=== PATIENT | male | born 1980 | race Caucasian/White ===

== ENCOUNTER 2016-10-09 10:40 | Emergency (ER) | payer SELFPAY | END 2016-10-09 13:44 | disposition home or self-care (01) | LOC: D.ER 10:40 | DX: S01.131A Puncture wound without foreign body of right eyelid and periocular area, initial encounter (principal); W20.8XXA Other cause of strike by thrown, projected or falling object, initial encounter; Y93.89 Activity, other specified; Y92.89 Other specified places as the place of occurrence of the external cause; R59.0 Localized enlarged lymph nodes; F17.200 Nicotine dependence, unspecified, uncomplicated ==

== ENCOUNTER 2016-12-24 11:01 | Emergency (ER) | payer SELFPAY | END 2016-12-24 12:40 | disposition home or self-care (01) | LOC: D.ER 11:01 | DX: S60.410A Abrasion of right index finger, initial encounter (principal); X58.XXXA Exposure to other specified factors, initial encounter; Y93.89 Activity, other specified; Y92.89 Other specified places as the place of occurrence of the external cause; F17.200 Nicotine dependence, unspecified, uncomplicated ==

== ENCOUNTER 2017-02-12 12:19 | Emergency (ER) | payer SELFPAY | END 2017-02-12 15:09 | disposition home or self-care (01) | LOC: D.ER 12:19 | DX: S89.91XA Unspecified injury of right lower leg, initial encounter (principal); X58.XXXA Exposure to other specified factors, initial encounter; Y93.51 Activity, roller skating (inline) and skateboarding; Y92.019 Unspecified place in single-family (private) house as the place of occurrence of the external cause; S80.01XA Contusion of right knee, initial encounter; F17.200 Nicotine dependence, unspecified, uncomplicated ==

== ENCOUNTER 2017-05-07 08:28 | Emergency (ER) | payer SELFPAY | END 2017-05-07 09:31 | disposition home or self-care (01) | LOC: D.ER 08:28 | DX: J01.90 Acute sinusitis, unspecified (principal); F17.200 Nicotine dependence, unspecified, uncomplicated ==

== ENCOUNTER 2017-06-16 13:46 | Emergency (ER) | payer SELFPAY | END 2017-06-16 16:50 | disposition home or self-care (01) | LOC: D.ER 13:46 | DX: S02.5XXA Fracture of tooth (traumatic), initial encounter for closed fracture (principal); X58.XXXA Exposure to other specified factors, initial encounter; Y93.89 Activity, other specified; Y92.019 Unspecified place in single-family (private) house as the place of occurrence of the external cause; K08.89 Other specified disorders of teeth and supporting structures ==

== ENCOUNTER 2017-07-22 09:04 | Emergency (ER) | payer SELFPAY | END 2017-07-22 11:56 | disposition home or self-care (01) | LOC: D.ER 09:04 | DX: M54.5 Low back pain (principal); F17.200 Nicotine dependence, unspecified, uncomplicated ==

== ENCOUNTER 2017-08-06 14:12 | Emergency (ER) | payer SELFPAY | END 2017-08-06 15:12 | disposition home or self-care (01) | LOC: D.ER 14:12 | DX: M54.5 Low back pain (principal) ==

== ENCOUNTER 2017-12-24 11:10 | Emergency (ER) | payer SELFPAY ==
[~2017-12-24] VITALS: Ht 188 cm; Wt 81.8 kg
[2017-12-24 11:32] VITALS: BP 122/91; Ht 188 cm; Wt 81.8 kg
== END 2017-12-24 16:19 | disposition home or self-care (01) ==
LOC: D.ER 11:10
DX: S91.341A Puncture wound with foreign body, right foot, initial encounter (principal); W25.XXXA Contact with sharp glass, initial encounter; Y93.89 Activity, other specified; Y92.019 Unspecified place in single-family (private) house as the place of occurrence of the external cause; F17.200 Nicotine dependence, unspecified, uncomplicated

== ENCOUNTER 2018-03-03 06:59 | Emergency (ER) | payer SELFPAY ==
[~2018-03-03] VITALS: Ht 188 cm; Wt 81.8 kg
[2018-03-03 07:03] VITALS: Ht 188 cm; Wt 81.8 kg
[2018-03-03] MEDS ORDERED: MEDROL DOSE PACK4 MG PO (09:45)
[2018-03-03] MEDS ORDERED: ZPAK PO (09:45)
[2018-03-03 10:07] VITALS: BP 132/85
== END 2018-03-03 10:04 | disposition home or self-care (01) ==
LOC: D.ER 06:59
DX: J06.9 Acute upper respiratory infection, unspecified (principal); J20.9 Acute bronchitis, unspecified; R53.81 Other malaise; R53.83 Other fatigue; F17.200 Nicotine dependence, unspecified, uncomplicated; R09.89 Other specified symptoms and signs involving the circulatory and respiratory systems

== ENCOUNTER 2018-03-24 08:06 | Emergency (ER) | payer SELFPAY ==
[~2018-03-24] VITALS: Ht 188 cm; Wt 81.8 kg
[~2018-03-24 08:06] MED LIST: MEDROL DOSE PACK4 MG PO; ZPAK PO
[2018-03-24 08:09] VITALS: Ht 188 cm; Wt 81.8 kg
[2018-03-24 09:03] VITALS: BP 126/87
== END 2018-03-24 09:03 | disposition home or self-care (01) ==
LOC: D.ER 08:06
DX: M54.5 Low back pain (principal); F17.200 Nicotine dependence, unspecified, uncomplicated

== ENCOUNTER 2018-04-22 06:32 | Emergency (ER) | payer SELFPAY ==
[~2018-04-22] VITALS: Ht 188 cm; Wt 86.4 kg
[2018-04-22 06:38] VITALS: Ht 188 cm; Wt 86.4 kg
[2018-04-22 07:17] LABS: BASOPHILS 0.4 % (0-2); EOSINOPHILS 3.1 % (0-7); HEMATOCRIT 47.1 % (42.0-54.0); HEMOGLOBIN 16.3 g/dL (13.5-17.5); IMMATURE GRANULOCYTES 0.1 % (0-5); LYMPHOCYTES 28.7 % (15-50); MCH 30.7 pg (26.0-34.0); MCHC 34.6 g/dL (31.0-37.0); MCV 88.7 fL (80.0-100.0); MEAN PLATELET VOLUME 10.1 fL (7.4-10.4); MONOCYTES 6.8 % (2-11); NEUTROPHILS 60.9 % (40-80); PLATELET COUNT 221 10x3/uL (130-400); RBC 5.31 10x6/uL (4.20-6.10); RDW 13.6 % (11.5-14.5); WBC 7.2 10x3/uL (4.8-10.8)
[2018-04-22] MEDS ORDERED: KEFLEX500 MG PO (07:25)
[2018-04-22 07:41] VITALS: BP 129/74
== END 2018-04-22 07:44 | disposition home or self-care (01) ==
LOC: D.ER 06:32
PROVIDERS: Family Medicine
DX: J01.90 Acute sinusitis, unspecified (principal); R09.89 Other specified symptoms and signs involving the circulatory and respiratory systems; F17.200 Nicotine dependence, unspecified, uncomplicated

== ENCOUNTER 2018-12-31 06:34 | Emergency (ER) | payer SELFPAY ==
[~2018-12-31] VITALS: Ht 188 cm; Wt 81.8 kg
[~2018-12-31 06:34] MED LIST changes: +KEFLEX500 MG PO
[2018-12-31 06:38] VITALS: Ht 188 cm; Wt 81.8 kg
[2018-12-31 07:40] VITALS: BP 124/78
== END 2018-12-31 07:41 | disposition home or self-care (01) ==
LOC: D.ER 06:34
DX: M54.5 Low back pain (principal)

== ENCOUNTER 2019-02-17 08:45 | Emergency (ER) | payer SELFPAY ==
[~2019-02-17] VITALS: Ht 188 cm; Wt 77.3 kg
[2019-02-17 09:04] VITALS: Ht 188 cm; Wt 77.3 kg
[2019-02-17 09:28] LABS: BASOPHILS 0.4 % (0-2); HEMATOCRIT 46.3 % (42.0-54.0); HEMOGLOBIN 16.5 g/dL (13.5-17.5); IMMATURE GRANULOCYTES 0.1 % (0-5); LYMPHOCYTES 29.6 % (15-50); MCH 30.8 pg (26.0-34.0); MCHC 35.6 g/dL (31.0-37.0); MCV 86.4 fL (80.0-100.0); MEAN PLATELET VOLUME 9.5 fL (7.4-10.4); MONOCYTES 6.5 % (2-11); NEUTROPHILS 60.4 % (40-80); PLATELET COUNT 201 10x3/uL (130-400); RBC 5.36 10x6/uL (4.20-6.10); RDW 14.2 % (11.5-14.5); WBC 7.9 10x3/uL (4.8-10.8)
[2019-02-17 09:46] LABS: ALBUMIN 3.8 g/dL (3.4-5.0); ALKALINE PHOSPHATASE 68 U/L (46-116); ALT (SGPT) 26 U/L (10-68); BILIRUBIN - TOTAL 0.44 mg/dL (0.2-1.3); CALC OSMOLALITY 279 mosm/kg (275-300); CALCIUM 9.1 mg/dL (8.5-10.1); CARBON DIOXIDE 30.2 mmol/L (21.0-32.0); CHLORIDE - SERUM 104 mmol/L (98-107); CREATININE - SERUM 1.1 mg/dL (0.6-1.3); GLUCOSE 101 mg/dL (74-106); POTASSIUM - SERUM 4.2 mmol/L (3.5-5.1); PROTEIN - SERUM 7.1 g/dL (6.4-8.2); SODIUM 141 mmol/L (136-145); UREA NITROGEN 11 mg/dL (7-18); eGFR NON AFRICAN AMERICAN 79 mL/min (90-120)
[2019-02-17 09:50] LABS: AMYLASE - SERUM 40 U/L (25-115); LIPASE 143 U/L (73-393); TROPONIN-I < 0.017 ng/mL (0.000-0.060)
[2019-02-17 10:05] LABS: APPEARANCE CLEAR (CLEAR); BILIRUBIN NEGATIVE (NEGATIVE); COLOR YELLOW (YELLOW); GLUCOSE NEGATIVE (NEGATIVE); KETONE NEGATIVE (NEGATIVE); NITRITE NEGATIVE (NEGATIVE); PROTEIN NEGATIVE (NEGATIVE); UROBILINOGEN NORMAL (NORMAL); WHITE CELLS - URINE OCC /hpf (0-5)
[2019-02-17 10:06] LABS: BACTERIA FEW /hpf (NONE SEEN); EPITHELIAL CELLS 0-5 /hpf (0-5); MUCUS <1+ /lpf (NONE SEEN); RED CELLS - URINE NONE SEEN /hpf (0-5)
[2019-02-17] MEDS ORDERED: ZOFRAN ODT4 MG/UDTAB PO (10:17)
[2019-02-17] MEDS ORDERED: FLORASTOR250 MG PO (10:17)
[2019-02-17 10:38] VITALS: BP 135/74
== END 2019-02-17 10:38 | disposition home or self-care (01) ==
LOC: D.ER 08:45
PROVIDERS: Family Medicine
DX: T61.8X1A Toxic effect of other seafood, accidental (unintentional), initial encounter (principal); R19.7 Diarrhea, unspecified; F17.200 Nicotine dependence, unspecified, uncomplicated